=== PATIENT | female | born 1945 | race Caucasian/White ===

== ENCOUNTER → 2016-12-25 | Outpatient (CLI) | payer MEDICARE, BC ==
[~2016-12-25] MED LIST: ASCO1TAB4 PO; CALC1TAB PO; CRAN450C PO; CRAN450T3 PO; GLUC1TAB9 PO; MELO-184 PO; OMNIPAQUE 350 MG/ML, 100ML BOTTLE ONE; SIMV20TA3 PO; VENL150T PO
== END | disposition home or self-care (01) ==
LOC: RAD 08:53
PROVIDERS: ATTEND Internal Medicine Hematology & Oncology
DX: C50.911 Malignant neoplasm of unspecified site of right female breast (principal); C78.7 Secondary malignant neoplasm of liver and intrahepatic bile duct; C79.51 Secondary malignant neoplasm of bone; Q33.1 Accessory lobe of lung; K76.89 Other specified diseases of liver; E11.9 Type 2 diabetes mellitus without complications; T50.8X1A Poisoning by diagnostic agents, accidental (unintentional), initial encounter; Z90.11 Acquired absence of right breast and nipple
CPT/HCPCS: 36415; 71260; 74177; 82565; Q9967

== ENCOUNTER → 2016-12-25 | Outpatient (CLI) | payer MEDICARE, BC ==
[~2016-12-25] MED LIST changes: -OMNIPAQUE 350 MG/ML, 100ML BOTTLE ONE
== END | disposition home or self-care (01) ==
LOC: STAR 08:43
PROVIDERS: ATTEND Internal Medicine Hematology & Oncology
DX: Z01.810 Encounter for preprocedural cardiovascular examination (principal); C50.911 Malignant neoplasm of unspecified site of right female breast
CPT/HCPCS: 93005

== ENCOUNTER → 2017-01-22 | Outpatient (CLI) | payer MEDICARE, BC | END | disposition home or self-care (01) | LOC: STAR 12:50 | PROVIDERS: ATTEND Internal Medicine Hematology & Oncology | DX: Z01.810 Encounter for preprocedural cardiovascular examination (principal); C50.919 Malignant neoplasm of unspecified site of unspecified female breast | CPT/HCPCS: 93005 ==

== ENCOUNTER → 2017-02-07 | Outpatient (CLI) | payer MEDICARE, BC | END | disposition home or self-care (01) | LOC: PETCFH 09:12 | PROVIDERS: ATTEND Internal Medicine Hematology & Oncology | DX: C79.51 Secondary malignant neoplasm of bone (principal); C78.7 Secondary malignant neoplasm of liver and intrahepatic bile duct; C50.919 Malignant neoplasm of unspecified site of unspecified female breast; Z90.11 Acquired absence of right breast and nipple | CPT/HCPCS: 78815; A9552 ==

== ENCOUNTER → 2017-02-07 | Outpatient (CLI) | payer MEDICARE, BC ==
[~2017-02-07] MED LIST changes: +OMNIPAQUE 350 MG/ML, 100ML BOTTLE ONE
== END | disposition home or self-care (01) ==
LOC: CFH 09:19
PROVIDERS: ATTEND Internal Medicine Hematology & Oncology
DX: C78.7 Secondary malignant neoplasm of liver and intrahepatic bile duct (principal); C50.919 Malignant neoplasm of unspecified site of unspecified female breast
CPT/HCPCS: 74160; Q9967

== ENCOUNTER → 2017-02-21 | Outpatient (CLI) | payer MEDICARE, BC ==
[~2017-02-21] MED LIST changes: -OMNIPAQUE 350 MG/ML, 100ML BOTTLE ONE
== END | disposition home or self-care (01) ==
LOC: CVU 09:24
PROVIDERS: ATTEND Internal Medicine Hematology & Oncology
DX: I51.7 Cardiomegaly (principal); I37.1 Nonrheumatic pulmonary valve insufficiency; I34.0 Nonrheumatic mitral (valve) insufficiency; C50.919 Malignant neoplasm of unspecified site of unspecified female breast; C78.7 Secondary malignant neoplasm of liver and intrahepatic bile duct; E78.5 Hyperlipidemia, unspecified; Z87.891 Personal history of nicotine dependence; Z90.11 Acquired absence of right breast and nipple
CPT/HCPCS: 93306

== ENCOUNTER → 2017-03-22 | Outpatient (CLI) | payer MEDICARE, BC | END | disposition home or self-care (01) | LOC: CFH 14:26 | PROVIDERS: ATTEND Internal Medicine Hematology & Oncology | DX: Z51.11 Encounter for antineoplastic chemotherapy (principal); C79.51 Secondary malignant neoplasm of bone; C50.919 Malignant neoplasm of unspecified site of unspecified female breast; M47.897 Other spondylosis, lumbosacral region; M41.84 Other forms of scoliosis, thoracic region; D70.1 Agranulocytosis secondary to cancer chemotherapy; D69.6 Thrombocytopenia, unspecified | CPT/HCPCS: 72072; 72100 ==

== ENCOUNTER → 2017-05-16 | Outpatient (CLI) | payer MEDICARE, BC ==
[~2017-05-16] MED LIST changes: +OMNIPAQUE 350 MG/ML, 100ML BOTTLE ONE
== END | disposition home or self-care (01) ==
LOC: CFH 12:26
PROVIDERS: ATTEND Internal Medicine Hematology & Oncology
DX: C79.51 Secondary malignant neoplasm of bone (principal); C78.7 Secondary malignant neoplasm of liver and intrahepatic bile duct; C50.919 Malignant neoplasm of unspecified site of unspecified female breast; K57.30 Diverticulosis of large intestine without perforation or abscess without bleeding; D73.9 Disease of spleen, unspecified; S22.31XA Fracture of one rib, right side, initial encounter for closed fracture; M89.8X8 Other specified disorders of bone, other site; J92.9 Pleural plaque without asbestos; R91.1 Solitary pulmonary nodule; Z90.11 Acquired absence of right breast and nipple; X58.XXXA Exposure to other specified factors, initial encounter; Y93.89 Activity, other specified; Y92.89 Other specified places as the place of occurrence of the external cause; Y99.8 Other external cause status
CPT/HCPCS: 71260; 74177; Q9967

== ENCOUNTER → 2017-07-10 | Outpatient (CLI) | payer MEDICARE, BC ==
[~2017-07-10] MED LIST changes: -MELO-184 PO; +MELO15TA24 PO; -OMNIPAQUE 350 MG/ML, 100ML BOTTLE ONE
== END | disposition home or self-care (01) ==
LOC: CFH 10:30
PROVIDERS: ATTEND Internal Medicine Hematology & Oncology
DX: I31.3 Pericardial effusion (noninflammatory) (principal); I51.7 Cardiomegaly; C50.911 Malignant neoplasm of unspecified site of right female breast; E11.9 Type 2 diabetes mellitus without complications; E78.5 Hyperlipidemia, unspecified
CPT/HCPCS: 93306

== ENCOUNTER → 2017-09-17 | Outpatient (CLI) | payer MEDICARE, BC | END | disposition home or self-care (01) | LOC: CVU 08:36 | PROVIDERS: ATTEND Internal Medicine Hematology & Oncology | DX: I34.0 Nonrheumatic mitral (valve) insufficiency (principal); I51.89 Other ill-defined heart diseases; C50.911 Malignant neoplasm of unspecified site of right female breast; C78.7 Secondary malignant neoplasm of liver and intrahepatic bile duct | CPT/HCPCS: 93306 ==

== ENCOUNTER → 2017-10-11 | Outpatient (CLI) | payer MEDICARE, BC ==
[~2017-10-11] MED LIST changes: +OMNIPAQUE 350 MG/ML, 100ML BOTTLE ONE
== END ==
LOC: CFH 10:04
PROVIDERS: ATTEND Internal Medicine Hematology & Oncology
DX: C78.7 Secondary malignant neoplasm of liver and intrahepatic bile duct (principal); J90 Pleural effusion, not elsewhere classified; S22.41XD Multiple fractures of ribs, right side, subsequent encounter for fracture with routine healing; X58.XXXD Exposure to other specified factors, subsequent encounter; Z85.3 Personal history of malignant neoplasm of breast; J93.83 Other pneumothorax
CPT/HCPCS: 71260; 74177; Q9967

== ENCOUNTER → 2017-10-15 | Outpatient (CLI) | payer MEDICARE, BC ==
[~2017-10-15] MED LIST changes: -OMNIPAQUE 350 MG/ML, 100ML BOTTLE ONE
== END | disposition home or self-care (01) ==
LOC: CFH 11:25
PROVIDERS: ATTEND Internal Medicine Hematology & Oncology
DX: J93.9 Pneumothorax, unspecified (principal); J90 Pleural effusion, not elsewhere classified; C50.919 Malignant neoplasm of unspecified site of unspecified female breast; S22.41XD Multiple fractures of ribs, right side, subsequent encounter for fracture with routine healing; X58.XXXD Exposure to other specified factors, subsequent encounter
CPT/HCPCS: 71046

== ENCOUNTER → 2017-10-29 | Outpatient (CLI) | payer MEDICARE, BC | END | disposition home or self-care (01) | LOC: CFH 12:01 | PROVIDERS: ATTEND Internal Medicine Hematology & Oncology | DX: C79.51 Secondary malignant neoplasm of bone (principal); C50.911 Malignant neoplasm of unspecified site of right female breast; M84.48XA Pathological fracture, other site, initial encounter for fracture; J93.9 Pneumothorax, unspecified; J90 Pleural effusion, not elsewhere classified | CPT/HCPCS: 71046 ==

== ENCOUNTER 2017-10-31 06:39 | Day surgery (SDC) | payer MEDICARE, BC ==
[~2017-10-31] VITALS: Ht 157.5 cm; Wt 49.3 kg
[2017-10-31 07:28] VITALS: BP 172/99
[2017-10-31] MEDS ORDERED: SODIUM CHLORIDE 0.9% 1,000 ML IV SCH (07:31)
[2017-10-31] MEDS ORDERED: SIMV10TA3 PO (07:50)
[2017-10-31] MEDS ORDERED: DENO120V SC (07:50)
[2017-10-31] MEDS ORDERED: MELO15TA24 PO (07:50)
[2017-10-31] MEDS ORDERED: CHOL2000 PO (07:50)
[2017-10-31] MEDS ORDERED: CRAN425C3 PO (07:50)
[2017-10-31] MEDS ORDERED: ASCO1TAB4 PO (07:50)
[2017-10-31] MEDS ORDERED: VENL37.57 PO (07:50)
[2017-10-31] MEDS ORDERED: LIDOCAINE 1%, 20ML ONE (07:57)
[2017-10-31] MEDS ORDERED: NALOXONE 1 MG/ML, 2ML ONE (07:59)
[2017-10-31] MEDS ORDERED: FENTANYL PF 100 MCG/2ML ONE ×2 (07:59)
[2017-10-31] MEDS ORDERED: MIDAZOLAM 1 MG/ML, 2ML ONE (07:59)
[2017-10-31] MEDS ORDERED: FLUMAZENIL 0.1 MG/1 ML, 5ML ONE (07:59)
== END 2017-10-31 10:00 | disposition home or self-care (01) ==
LOC: OUT 06:39
PROVIDERS: ATTEND Internal Medicine Hematology & Oncology
DX: J94.8 Other specified pleural conditions (principal); C50.919 Malignant neoplasm of unspecified site of unspecified female breast; F41.9 Anxiety disorder, unspecified; F32.9 Major depressive disorder, single episode, unspecified; Z98.890 Other specified postprocedural states; Z90.11 Acquired absence of right breast and nipple
CPT/HCPCS: 32557; 99156; 99157; C1729; C1769; J2250; J3010; J3490; J7030; 32551; J2310

== ENCOUNTER → 2017-11-05 | Outpatient (CLI) | payer MEDICARE, BC ==
[~2017-11-05] MED LIST changes: +CHOL2000 PO; +CRAN425C3 PO; +DENO120V SC; +SIMV10TA3 PO; +VENL37.57 PO
== END | disposition home or self-care (01) ==
LOC: CFH 11:39
PROVIDERS: ATTEND Internal Medicine Hematology & Oncology
DX: Z46.82 Encounter for fitting and adjustment of non-vascular catheter (principal)
CPT/HCPCS: 71045

== ENCOUNTER → 2017-11-06 | Outpatient (CLI) | payer MEDICARE, BC | LOC: RAD 14:39 | PROVIDERS: ATTEND Radiology Diagnostic Radiology | DX: S22.41XA Multiple fractures of ribs, right side, initial encounter for closed fracture (principal); X58.XXXA Exposure to other specified factors, initial encounter; Y93.89 Activity, other specified; Y92.89 Other specified places as the place of occurrence of the external cause; Y99.8 Other external cause status; Z90.11 Acquired absence of right breast and nipple | CPT/HCPCS: 71046 ==

== ENCOUNTER → 2017-11-12 | Outpatient (CLI) | payer MEDICARE, BC | END | disposition home or self-care (01) | LOC: RAD 13:24 | PROVIDERS: ATTEND Internal Medicine Hematology & Oncology | DX: Z46.82 Encounter for fitting and adjustment of non-vascular catheter (principal); J93.9 Pneumothorax, unspecified; D69.6 Thrombocytopenia, unspecified; D70.1 Agranulocytosis secondary to cancer chemotherapy; C50.919 Malignant neoplasm of unspecified site of unspecified female breast; C79.51 Secondary malignant neoplasm of bone; C78.7 Secondary malignant neoplasm of liver and intrahepatic bile duct | CPT/HCPCS: 71046 ==

== ENCOUNTER → 2017-12-13 | Outpatient (CLI) | payer MEDICARE, BC | END | disposition home or self-care (01) | LOC: RAD 14:17 | PROVIDERS: ATTEND Family Medicine | DX: M84.48XD Pathological fracture, other site, subsequent encounter for fracture with routine healing (principal); C50.919 Malignant neoplasm of unspecified site of unspecified female breast; C78.7 Secondary malignant neoplasm of liver and intrahepatic bile duct; C79.51 Secondary malignant neoplasm of bone; D70.1 Agranulocytosis secondary to cancer chemotherapy; D69.6 Thrombocytopenia, unspecified | CPT/HCPCS: 71046 ==

== ENCOUNTER → 2018-01-07 | Outpatient (CLI) | payer MEDICARE, BC | LOC: ROC 11:07 | PROVIDERS: ATTEND Radiology Radiation Oncology | DX: Z08 Encounter for follow-up examination after completed treatment for malignant neoplasm (principal); C78.7 Secondary malignant neoplasm of liver and intrahepatic bile duct; C34.31 Malignant neoplasm of lower lobe, right bronchus or lung; D24.1 Benign neoplasm of right breast; Z17.0 Estrogen receptor positive status [ER+] | CPT/HCPCS: G0463 ==

== ENCOUNTER → 2018-02-11 | Outpatient (CLI) | payer MEDICARE, BC | LOC: ROC 08:39 | PROVIDERS: ATTEND Radiology Radiation Oncology | DX: Z08 Encounter for follow-up examination after completed treatment for malignant neoplasm (principal); C79.51 Secondary malignant neoplasm of bone; C78.7 Secondary malignant neoplasm of liver and intrahepatic bile duct; C34.31 Malignant neoplasm of lower lobe, right bronchus or lung; C50.911 Malignant neoplasm of unspecified site of right female breast | CPT/HCPCS: G0463 ==

== ENCOUNTER → 2018-02-19 | Outpatient (CLI) | payer MEDICARE, BC | END | disposition home or self-care (01) | LOC: RAD 14:48 | PROVIDERS: ATTEND Nurse Practitioner | DX: J90 Pleural effusion, not elsewhere classified (principal); G47.01 Insomnia due to medical condition; C50.919 Malignant neoplasm of unspecified site of unspecified female breast; C78.7 Secondary malignant neoplasm of liver and intrahepatic bile duct; C79.51 Secondary malignant neoplasm of bone; D70.1 Agranulocytosis secondary to cancer chemotherapy; D69.6 Thrombocytopenia, unspecified | CPT/HCPCS: 71046 ==

== ENCOUNTER → 2018-02-21 | Outpatient (CLI) | payer MEDICARE, BC ==
[~2018-02-21] MED LIST changes: +OMNIPAQUE 350 MG/ML, 100ML BOTTLE ONE
== END ==
LOC: RAD 13:47
PROVIDERS: ATTEND Internal Medicine Hematology & Oncology
DX: C50.919 Malignant neoplasm of unspecified site of unspecified female breast (principal); J90 Pleural effusion, not elsewhere classified
CPT/HCPCS: 71275; Q9967

== ENCOUNTER → 2018-02-28 | Outpatient (CLI) | payer MEDICARE, BC | END | disposition home or self-care (01) | LOC: RAD 11:40 | PROVIDERS: ATTEND Internal Medicine Hematology & Oncology | DX: C78.7 Secondary malignant neoplasm of liver and intrahepatic bile duct (principal); C79.51 Secondary malignant neoplasm of bone; C50.919 Malignant neoplasm of unspecified site of unspecified female breast; J90 Pleural effusion, not elsewhere classified | CPT/HCPCS: 74177; Q9967 ==

== ENCOUNTER → 2018-03-06 | Outpatient (CLI) | payer MEDICARE, BC ==
[~2018-03-06] MED LIST changes: -OMNIPAQUE 350 MG/ML, 100ML BOTTLE ONE
== END | disposition home or self-care (01) ==
LOC: RAD 13:54
PROVIDERS: ATTEND Internal Medicine Hematology & Oncology
DX: J90 Pleural effusion, not elsewhere classified (principal); C50.919 Malignant neoplasm of unspecified site of unspecified female breast; C78.7 Secondary malignant neoplasm of liver and intrahepatic bile duct; C79.51 Secondary malignant neoplasm of bone; D70.1 Agranulocytosis secondary to cancer chemotherapy; D69.6 Thrombocytopenia, unspecified; G47.01 Insomnia due to medical condition; Z90.11 Acquired absence of right breast and nipple
CPT/HCPCS: 71046

== ENCOUNTER → 2018-03-07 | Outpatient (CLI) | payer MEDICARE, BC ==
[~2018-03-07] MED LIST changes: +LIDOCAINE 2%, 20ML ONE
== END | disposition home or self-care (01) ==
LOC: RAD 14:33
PROVIDERS: ATTEND Internal Medicine Hematology & Oncology
DX: C50.919 Malignant neoplasm of unspecified site of unspecified female breast (principal); R18.8 Other ascites; J90 Pleural effusion, not elsewhere classified; R06.00 Dyspnea, unspecified
CPT/HCPCS: 32555; 83615; 87070; 87205; 88112; 88305; 89051; J3490

== ENCOUNTER → 2018-03-14 | Outpatient (CLI) | payer MEDICARE, BC ==
[~2018-03-14] MED LIST changes: +FENTANYL PF 100 MCG/2ML ONE; +FLUMAZENIL 0.1 MG/1 ML, 5ML ONE; +IBUP-1222 PO; -LIDOCAINE 2%, 20ML ONE; +MIDAZOLAM 1 MG/ML, 5ML ONE; +NALOXONE 1 MG/ML, 2ML ONE
== END | disposition home or self-care (01) ==
LOC: RAD 14:45
PROVIDERS: ATTEND Nurse Practitioner
DX: J93.9 Pneumothorax, unspecified (principal); C50.919 Malignant neoplasm of unspecified site of unspecified female breast; C79.51 Secondary malignant neoplasm of bone; D70.1 Agranulocytosis secondary to cancer chemotherapy; D69.6 Thrombocytopenia, unspecified; G47.01 Insomnia due to medical condition; C78.7 Secondary malignant neoplasm of liver and intrahepatic bile duct
CPT/HCPCS: 71046; J2250; J3010; J2310

== ENCOUNTER 2018-03-15 09:35 | Day surgery (SDC) | payer MEDICARE, BC ==
[~2018-03-15] VITALS: Ht 157.5 cm; Wt 51.3 kg
[~2018-03-15 09:35] MED LIST changes: -FENTANYL PF 100 MCG/2ML ONE; -FLUMAZENIL 0.1 MG/1 ML, 5ML ONE; -IBUP-1222 PO; -MIDAZOLAM 1 MG/ML, 5ML ONE; -NALOXONE 1 MG/ML, 2ML ONE
[2018-03-15 10:18] VITALS: BP 165/92
[2018-03-15] MEDS ORDERED: IBUP-1222 PO (10:23)
[2018-03-15] MEDS ORDERED: SODIUM CHLORIDE 0.9% 1,000 ML IV SCH (10:41)
== END 2018-03-15 17:00 ==
LOC: OUT 09:35
PROVIDERS: ATTEND Internal Medicine Hematology & Oncology
DX: C50.919 Malignant neoplasm of unspecified site of unspecified female breast (principal); C78.7 Secondary malignant neoplasm of liver and intrahepatic bile duct; C79.51 Secondary malignant neoplasm of bone; F41.9 Anxiety disorder, unspecified; F32.9 Major depressive disorder, single episode, unspecified; Z98.890 Other specified postprocedural states; Z87.891 Personal history of nicotine dependence
CPT/HCPCS: 32557; C1729; J7030

== ENCOUNTER → 2018-03-21 | Outpatient (CLI) | payer MEDICARE, BC ==
[~2018-03-21] MED LIST changes: +IBUP-1222 PO
== END | disposition home or self-care (01) ==
LOC: RAD 11:16
PROVIDERS: ATTEND Family Medicine
DX: S22.41XD Multiple fractures of ribs, right side, subsequent encounter for fracture with routine healing (principal); J98.4 Other disorders of lung; C50.919 Malignant neoplasm of unspecified site of unspecified female breast; C78.7 Secondary malignant neoplasm of liver and intrahepatic bile duct; C79.51 Secondary malignant neoplasm of bone; D70.1 Agranulocytosis secondary to cancer chemotherapy; D69.6 Thrombocytopenia, unspecified; G47.01 Insomnia due to medical condition; X58.XXXD Exposure to other specified factors, subsequent encounter
CPT/HCPCS: 71046

== ENCOUNTER → 2018-05-22 | Outpatient (CLI) | payer MEDICARE, BC | END | disposition home or self-care (01) | LOC: PETCFH 10:11 | PROVIDERS: ATTEND Internal Medicine Hematology & Oncology | DX: C79.51 Secondary malignant neoplasm of bone (principal); C78.7 Secondary malignant neoplasm of liver and intrahepatic bile duct; J90 Pleural effusion, not elsewhere classified | CPT/HCPCS: 78815; A9552 ==

== ENCOUNTER 2018-07-10 07:51 | Observation (INO) | payer MEDICARE, BC ==
[~2018-07-10] VITALS: Ht 157.5 cm; Wt 51.7 kg
[2018-07-10] MEDS ORDERED: ALPR0.25 PO (09:00)
[2018-07-10] MEDS ORDERED: LACTATED RINGERS 1,000 ML IV SCH ×2 (09:00→11:02)
[2018-07-10] MEDS ORDERED: MIDAZOLAM 1 MG/ML, 2ML ONE (09:18)
[2018-07-10] MEDS ORDERED: FENTANYL PF 100 MCG/2ML ONE (09:18)
[2018-07-10] MEDS ORDERED: DEXAMETHASONE 4 MG/ML, 1ML ONE (09:20)
[2018-07-10] MEDS ORDERED: GLYCOPYRROLATE 0.2MG/1ML, 5ML ONE (09:20)
[2018-07-10] MEDS ORDERED: NEOSTIGMINE 1 MG/ML, 10ML ONE (09:20)
[2018-07-10] MEDS ORDERED: ONDANSETRON 2MG/ML, 2ML ONE (09:20)
[2018-07-10] MEDS ORDERED: SUCCINYLCHOLINE 20 MG/ML, 10ML ONE (09:20)
[2018-07-10] MEDS ORDERED: CEFAZOLIN 1,000 MG ONE (09:20)
[2018-07-10] MEDS ORDERED: PROPOFOL 10 MG/ML, 20ML ONE ×2 (09:20→09:23)
[2018-07-10] MEDS ORDERED: ROCURONIUM 10MG/ML,5ML ONE (09:20)
[2018-07-10] MEDS ORDERED: LIDOCAINE 4%, 4 ML SYR/CANN TP ONE (09:23)
[2018-07-10] MEDS ORDERED: PROPOFOL 50 ML ONE (09:45)
[2018-07-10] MEDS ORDERED: ONDANSETRON 2MG/ML, 2ML IV PRN (10:00)
[2018-07-10] MEDS ORDERED: OXYcodone 5 MG/5 ML ORAL.SOL UDC PO PRN (10:00)
[2018-07-10] MEDS ORDERED: MORPHINE SULFATE 4 MG/ML, 1ML IVPush PRN ×2 (10:00→11:30)
[2018-07-10] MEDS ORDERED: PROMETHAZINE 25 MG/ML, 1ML IV PRN (10:00)
[2018-07-10] MEDS ORDERED: ONDANSETRON ODT 8 MG PO PRN (10:00)
[2018-07-10] MEDS ORDERED: FENTANYL PF 100 MCG/2ML IV PRN (10:00)
[2018-07-10] MEDS ORDERED: ACETAMINOPHEN 325 MG TABLET PO PRN (10:00)
[2018-07-10] MEDS ORDERED: OXYcodone 5 MG/5 ML ORAL.SOL UDC ONE (11:22)
[2018-07-10] MEDS ORDERED: LORazepam 2 MG/ML, 1ML IVPush PRN (11:30)
[2018-07-10] MEDS ORDERED: hydrALAzine 20 MG/ML, 1ML IVPush PRN (11:30)
[2018-07-10] MEDS ORDERED: HYDROcodone/APAP 5/325 TABLET PO PRN (11:30)
[2018-07-10] MEDS ORDERED: ONDANSETRON 2MG/ML, 2ML IVPush PRN (11:30)
[2018-07-10] MEDS ORDERED: ENALAPRILAT 1.25 MG/ML, 2ML IVPush PRN (11:30)
[2018-07-10] MEDS ORDERED: LORazepam 1MG TABLET PO PRN (11:30)
[2018-07-10] MEDS: FAMOTIDINE 20 MG TABLET PO SCH (11:30)
[2018-07-10] MEDS: FAMOTIDINE 20 MG/2 ML IVPush SCH (13:29)
[2018-07-10 14:30] VITALS: BP 170/69
[2018-07-10] MEDS: ACETAMINOPHEN 325 MG TABLET PO PRN (20:29)
[2018-07-10 20:37] VITALS: BP 132/76
[2018-07-10] MEDS ORDERED: SIMVASTATIN 10 MG TABLET PO SCH (21:00)
[2018-07-10] MEDS ORDERED: ONDANSETRON ODT 4 MG ONE (21:09)
[2018-07-10] MEDS ORDERED: ONDANSETRON ODT 4 MG PO PRN (21:30)
[2018-07-11 00:10] VITALS: BP 114/70
[2018-07-11] MEDS: FAMOTIDINE 20 MG TABLET PO SCH ×2 (01:30→12:26)
[2018-07-11] MEDS: FAMOTIDINE 20 MG/2 ML IVPush SCH ×2 (01:42→12:33)
[2018-07-11] MEDS: ACETAMINOPHEN 325 MG TABLET PO PRN ×2 (01:49→12:26)
[2018-07-11 05:24] LABS: BASOPHILS # (AUTO) 0.03 x10^3/uL (0-0.1); BASOPHILS % (AUTO) 1 % (0-1); EOSINOPHILS % (AUTO) 0 % (1-7); LYMPHOCYTES # (AUTO) 0.85 x10^3/uL (1-3.4); LYMPHOCYTES % (AUTO) 12 % (22-44); MD NO; MEAN CORPUSCULAR HEMOGLOBIN 29.4 pg (27.0-34.8); MEAN CORPUSCULAR HGB CONC 33.3 g/dL (32.4-35.8); MEAN CORPUSCULAR VOLUME 88.5 fL (80-100); MEAN PLATELET VOLUME 8.6 fL (7.4-10.4); MONOCYTES # (AUTO) 0.81 x10^3/uL (0.2-0.8); MONOCYTES % (AUTO) 11 % (2-9); NEUTROPHILS # (AUTO) 5.56 x10^3/uL (1.8-6.8); NEUTROPHILS % (AUTO) 77 % (42-75); PLATELET COUNT 209 x10^3/uL (130-400); RED CELL DISTRIBUTION WIDTH 16.1 % (9.6-15.2)
[2018-07-11 05:39] LABS: ANION GAP 9 mmol/L (5-15); CHLORIDE 106 mmol/L (98-107)
[2018-07-11 05:41] LABS: CALCIUM 8.3 mg/dL (8.5-10.1); CREATININE 0.67 mg/dL (0.55-1.02)
[2018-07-11 07:13] VITALS: BP 149/74
[2018-07-11] MEDS ORDERED: CHOLECALCIFEROL 1,000 UNIT TABLET PO SCH (09:00)
[2018-07-11] MEDS ORDERED: ENOXAPARIN 40 MG/0.4 ML SQ SCH (09:00)
[2018-07-11] MEDS ORDERED: ASCORBIC ACID 500 MG TABLET PO SCH (09:00)
[2018-07-11] MEDS ORDERED: VENLAFAXINE 37.5MG TABLET PO SCH (09:00)
[2018-07-11] MEDS ORDERED: DENOSUMAB 120 MG/1.7 ML SQ SCH (12:30)
[2018-07-11 15:14] VITALS: BP 133/77
[2018-07-11] MEDS ORDERED: ACET-1600 PO (16:15)
[2018-07-11] MEDS ORDERED: IBUP-1222 PO (16:16)
== END 2018-07-11 16:35 | disposition home or self-care (01) ==
LOC: ORIP 07:51 → INTOOBSV 07:51 → EDSTATUS 11:00 → 4NOR 12:11 → DCLOUNGE 07-11 16:21
PROVIDERS: ADMIT Surgery; ATTEND Surgery
DX: J90 Pleural effusion, not elsewhere classified (principal); Z85.3 Personal history of malignant neoplasm of breast; Z85.118 Personal history of other malignant neoplasm of bronchus and lung; Z99.81 Dependence on supplemental oxygen
CPT/HCPCS: 32555; 36415; 71045; 80048; 85025; 88112; 93005; 96372; 96374; C1729; G0378; J0330; J0690; J1100; J1650; J2250; J2405; J2704; J2710; J3010; J3490; J7120; Q0162; S0028; 96361; 96365; 96375; 96376

== ENCOUNTER → 2018-11-14 | Outpatient (CLI) | payer MEDICARE, BC ==
[~2018-11-14] MED LIST changes: +ACET-1600 PO; +ALPR0.25 PO; +OMNIPAQUE 350 MG/ML, 100ML BOTTLE ONE
== END | disposition home or self-care (01) ==
LOC: PETCFH 10:07
PROVIDERS: ATTEND Internal Medicine Hematology & Oncology
DX: C78.7 Secondary malignant neoplasm of liver and intrahepatic bile duct (principal); C79.51 Secondary malignant neoplasm of bone; C50.919 Malignant neoplasm of unspecified site of unspecified female breast; J90 Pleural effusion, not elsewhere classified; R91.8 Other nonspecific abnormal finding of lung field; M47.816 Spondylosis without myelopathy or radiculopathy, lumbar region; M85.88 Other specified disorders of bone density and structure, other site
CPT/HCPCS: 71260; 74177; 78306; 82565; A9503; Q9967

== ENCOUNTER → 2019-01-31 | Outpatient (CLI) | payer MEDICARE, BC | END | disposition home or self-care (01) | LOC: RAD 09:32 | PROVIDERS: ATTEND Internal Medicine Hematology & Oncology | DX: C50.911 Malignant neoplasm of unspecified site of right female breast (principal); C78.7 Secondary malignant neoplasm of liver and intrahepatic bile duct; C79.51 Secondary malignant neoplasm of bone; J90 Pleural effusion, not elsewhere classified; J84.10 Pulmonary fibrosis, unspecified; R91.8 Other nonspecific abnormal finding of lung field; R18.8 Other ascites | CPT/HCPCS: 71260; 74177; 78306; A9503; Q9967 ==

== ENCOUNTER → 2019-04-09 | Outpatient (CLI) | payer MEDICARE, BC ==
[~2019-04-09] MED LIST changes: +LIDOCAINE-MPF 1%, 5ML ONE; -OMNIPAQUE 350 MG/ML, 100ML BOTTLE ONE
== END | disposition home or self-care (01) ==
LOC: RAD 13:29
PROVIDERS: ATTEND Internal Medicine Hematology & Oncology
DX: C50.919 Malignant neoplasm of unspecified site of unspecified female breast (principal)
CPT/HCPCS: 49083

== ENCOUNTER 2019-04-23 13:03 | Outpatient (CLI) | payer MEDICARE, BC | END 2019-04-23 23:59 | disposition home or self-care (01) | LOC: RAD 13:03 | PROVIDERS: ATTEND Internal Medicine Hematology & Oncology | DX: C50.911 Malignant neoplasm of unspecified site of right female breast (principal); R18.0 Malignant ascites | CPT/HCPCS: 49083 ==

== ENCOUNTER 2019-05-06 11:34 | Outpatient (CLI) | payer MEDICARE, BC | END 2019-05-06 23:59 | disposition home or self-care (01) | LOC: RAD 11:34 | PROVIDERS: ATTEND Internal Medicine Hematology & Oncology | DX: C50.919 Malignant neoplasm of unspecified site of unspecified female breast (principal) | CPT/HCPCS: 49083 ==

== ENCOUNTER 2019-05-13 13:14 | Outpatient (CLI) | payer MEDICARE, BC | END 2019-05-13 23:59 | disposition home or self-care (01) | LOC: WOUND 13:14 | PROVIDERS: ATTEND Nurse Practitioner Family | DX: S90.821A Blister (nonthermal), right foot, initial encounter (principal); I89.0 Lymphedema, not elsewhere classified; I10 Essential (primary) hypertension; E78.5 Hyperlipidemia, unspecified; F41.9 Anxiety disorder, unspecified; F32.9 Major depressive disorder, single episode, unspecified; Z87.891 Personal history of nicotine dependence; Z85.3 Personal history of malignant neoplasm of breast; X58.XXXA Exposure to other specified factors, initial encounter; Y93.89 Activity, other specified; Y92.89 Other specified places as the place of occurrence of the external cause; Y99.8 Other external cause status | CPT/HCPCS: 97597; G0463 ==

== ENCOUNTER 2019-05-14 07:05 | Day surgery (SDC) | payer MEDICARE, BC ==
[~2019-05-14] VITALS: Ht 154.9 cm; Wt 55.6 kg
[2019-05-14 07:51] VITALS: BP 112/65
== END 2019-05-14 11:30 | disposition home or self-care (01) ==
LOC: OUT 07:05 → EDSTATUS 09:00 → OUT 11:30
PROVIDERS: ATTEND Internal Medicine Hematology & Oncology
DX: Z45.2 Encounter for adjustment and management of vascular access device (principal); C50.911 Malignant neoplasm of unspecified site of right female breast; R18.0 Malignant ascites; F41.9 Anxiety disorder, unspecified; F32.9 Major depressive disorder, single episode, unspecified; Z90.11 Acquired absence of right breast and nipple
CPT/HCPCS: 32552; 49083; 99156; 99157; J2250; J3010; J2310

== ENCOUNTER → 2019-08-28 | Outpatient (CLI) | payer MEDICARE, BC ==
[~2019-08-28] MED LIST changes: +LIDOCAINE 1%, 10ML ONE; -LIDOCAINE-MPF 1%, 5ML ONE
== END | disposition home or self-care (01) ==
LOC: RAD 07:41
PROVIDERS: ATTEND Internal Medicine Hematology & Oncology
DX: R18.0 Malignant ascites (principal); C50.911 Malignant neoplasm of unspecified site of right female breast
CPT/HCPCS: 49083

== ENCOUNTER → 2019-10-09 | Outpatient (CLI) | payer MEDICARE, BC | END | disposition home or self-care (01) | LOC: RAD 08:10 | PROVIDERS: ATTEND Internal Medicine Hematology & Oncology | DX: C50.911 Malignant neoplasm of unspecified site of right female breast (principal); R18.0 Malignant ascites | CPT/HCPCS: 49083 ==

== ENCOUNTER 2019-10-22 11:55 | Outpatient (CLI) | payer MEDICARE, BC ==
[~2019-10-22 11:55] MED LIST changes: -LIDOCAINE 1%, 10ML ONE
[2019-10-22] MEDS ORDERED: LIDOCAINE 1%, 10ML ONE (12:13)
== END 2019-10-22 23:59 | disposition home or self-care (01) ==
LOC: RAD 11:55
PROVIDERS: ATTEND Internal Medicine Hematology & Oncology
DX: C79.81 Secondary malignant neoplasm of breast (principal); R18.0 Malignant ascites
CPT/HCPCS: 49083